=== PATIENT | female | born 1980 | race Caucasian/White ===

== ENCOUNTER 2024-03-01 09:56 | Emergency (ER) | payer OTHER ==
[~2024-03-01] VITALS: Ht 167.6 cm; Wt 107.6 kg
[2024-03-01] MEDS ORDERED: AMOX500C PO (10:52)
[2024-03-01 10:58] VITALS: BP 133/81; TEMP 97.8; O2SAT 100
== END 2024-03-01 11:22 | disposition home or self-care (01) ==
LOC: M ED 11:16
DX: J02.0 Streptococcal pharyngitis (principal); Z88.8 Allergy status to other drugs, medicaments and biological substances